=== PATIENT | male | born 1990 | race Caucasian/White ===

== ENCOUNTER 2017-12-31 19:55 | Emergency (ER) | payer BC ==
[2017-12-31 20:01] VITALS: BP 141/97
--- NOTE | 2017-12-31 20:04 | UC ---
Respiratory Complaint HPI - HPI Summary HPI Summary: 27 yo male presents with chest congestion and cough for 3 weeks. He tells me that 3 weeks ago his symptoms first developed with a productive cough, fever, fatigue. He did not seek medical treatment. His fever and fatigue resolved, but since that time his cough has been persistent. Today he was coughing so much that it caused him to vomit twice. He has been taking mucinex OTC with good results at first, but no longer. Denies fever, chills, SOB, chest pain, abdominal pain, or diarrhea. - History of Current Complaint Chief Complaint: UCRespiratory Stated Complaint: CHEST CONGESTION Time Seen by Provider: 12/31/17 20:04 Hx Obtained From: Patient Onset/Duration: Gradual Onset Severity Currently: None Pain Intensity: 0 Character: Cough: Nonproductive - Allergies/Home Medications Allergies/Adverse Reactions: Allergies Allergy/AdvReac Type Severity Reaction Status Date / Time No Known Allergies Allergy Verified 12/31/17 20:01 Home Medications: Home Medications guaiFENesin [Mucinex] 1 tab PO ONCE 12/31/17 [History Confirmed 12/31/17] PMH/Surg Hx/FS Hx/Imm Hx - Additional Past Medical History Additional PMH: None - Surgical History Surgical History: None - Family History Known Family History: Positive: None - Social History Occupation: Employed Full-time Lives: With Family Alcohol Use: Occasionally Substance Use Type: None Smoking Status (MU): Never Smoked Tobacco Review of Systems Constitutional: Negative Skin: Negative Eyes: Negative ENT: Negative Respiratory: Cough Cardiovascular: Negative Gastrointestinal: Negative Neurovascular: Negative Musculoskeletal: Negative Neurological: Negative Psychological: Negative All Other Systems Reviewed And Are Negative: Yes Physical Exam - Summary Physical Exam Summary: GENERAL: NAD. WDWN. No pain distress. SKIN: No rashes, sores, lesions, or open wounds. HEENT: Head: AT/NC Eyes: EOM intact. Conjunctiva clear without inflammation or discharge. Ears: Hearing grossly normal. TMs intact, no bulging, erythema, or edema. Nose: Nasal mucosa pink and moist. NTTP maxillary and frontal sinus. Throat: Posterior oropharynx without exudates, erythema, or tonsillar enlargement. Uvula midline. NECK: Supple. Nontender. No lymphadenopathy. CHEST: CTAB. No r/r/w. No accessory muscle use. Breathing comfortably and in no distress. CV: RRR. Without m/r/g. Pulses intact. Brisk cap refill. NEURO: Alert. CN II-XII grossly intact. PSYCH: Age appropriate behavior. Triage Information Reviewed: Yes Vital Signs: Initial Vital Signs Temp 97.7 F 12/31/17 19:59 Pulse 90 12/31/17 19:59 Resp 18 12/31/17 19:59 BP 141/97 12/31/17 19:59 Pulse Ox 99 12/31/17 19:59 Vital Signs Reviewed: Yes Diagnostic Evaluation - Laboratory O2 Sat by Pulse Oximetry: 99 Respiratory Course/Dx - Course Course Of Treatment: Bronchitis - Differential Dx/Diagnosis Provider Diagnoses: Bronchitis Discharge - Sign-Out/Discharge Documenting (check all that apply): Patient Departure - Discharge Plan Condition: Stable Disposition: HOME Prescriptions: Amoxicillin PO (*) [Amoxicillin 500 MG CAP*] 500 mg PO Q12H #14 cap Benzonatate CAP* [Tessalon 100 MG CAP*] 100 mg PO TID PRN #15 cap PRN Reason: Cough Ondansetron ODT TAB* [Zofran 4 MG Odt TAB*] 4 mg PO Q8H PRN #12 tab.odt MDD 3 PRN Reason: Nausea Patient Education Materials: Acute Bronchitis (ED) Referrals: No Primary Care Phys,NOPCP [Primary Care Provider] - Additional Instructions: If you develop a fever, shortness of breath, chest pain, new or worsening symptoms - please call your PCP or go to the ED. Your blood pressure was high at todays visit. Please see your primary provider within 4 weeks for recheck and re-evaluation. Per institutional requirements, I have reviewed the chart, however, I was not consulted specifically or made aware of this patient by the above midlevel provider. I did not personally evaluate, interact with , or disposition this patient. - Billing Disposition and Condition Condition: STABLE Disposition: Home
[2017-12-31] MEDS ORDERED: Amoxicillin PO (*) 500 MG CAP PO ONE (20:11)
[2017-12-31] MEDS ORDERED: Ondansetron ODT TAB* 4 MG PO ONE (20:11)
== END 2017-12-31 20:22 | disposition home or self-care (01) ==
LOC: UCEAST 19:55
DX: J40 Bronchitis, not specified as acute or chronic (principal)
CPT/HCPCS: 99212; A9270-GY; G0463